=== PATIENT | female | born 1925 | race Caucasian/White ===

== ENCOUNTER 2017-01-31 09:25 | Day surgery (SDC) | payer MEDICARE, BC ==
[~2017-01-31 09:25] MED LIST: Dexamethasone 4 MG/ML SDV ONE; Midazolam 1 MG/ML 2 ML SDV ONE
[2017-01-31] MEDS ORDERED: Sodium Chloride 0.9% 10 ML Syringe FLUSH PRN (09:30)
[2017-01-31] MEDS ORDERED: Cataract Ophth Solution EYELF ONE (09:30)
[2017-01-31] MEDS ORDERED: Proparacaine 0.5% Ophth Soln 15 ML Bottle EYELF ONE (09:30)
[2017-01-31] MEDS ORDERED: Acetaminophen/Codeine 300-30 MG Tab PO PRN (09:30)
[2017-01-31] MEDS ORDERED: Phenylephrine 10% Ophth Soln 5 ML Bot EYELF PRN (09:30)
[2017-01-31] MEDS ORDERED: Povidone-Iodine 5% Sterile Ophth Soln 30 ML Bottle EYELF ONE ×2 (09:30→10:33)
[2017-01-31] MEDS ORDERED: Phenylephrine 10% Ophth Soln 5 ML Bot EYELF ONE (09:30)
[2017-01-31] MEDS ORDERED: Timolol Maleate 0.5% Ophth Soln 5 ML Bottle EYELF ONE (09:30)
[2017-01-31] MEDS ORDERED: Moxifloxacin 0.5% Ophth Soln 3 ML Bottle EYELF ONE (09:30)
[2017-01-31] MEDS ORDERED: Acetaminophen 325 MG Tab PO PRN (09:30)
[2017-01-31] MEDS ORDERED: Ondansetron 4 MG/2 ML SDV IVPUSH PRN (09:30)
[2017-01-31] MEDS ORDERED: Apraclonidine 0.5% Ophth Soln 5 ML Bot EYELF ONE (10:33)
[2017-01-31] MEDS ORDERED: Diclofenac Sodium 0.1% Ophth Soln 5 ML Bottle EYELF ONE (10:33)
[2017-01-31] MEDS ORDERED: Dexamethasone/Neomycin/Polymyxin B Ophth Oint 3.5 GM Tube EYELF ONE (10:33)
[2017-01-31] MEDS ORDERED: Lidocaine 1% 30 ML SDV ONE (10:34)
[2017-01-31] MEDS ORDERED: Balanced Salt Solution Ophth Irrig 500 ML Bottle IOCULAR ONE (10:34)
[2017-01-31] MEDS ORDERED: Chondroitin Sulfate/Hyaluronate Sodium Ophth Inj 0.5 ML Syringe IOCULAR ONE (10:34)
[2017-01-31] MEDS ORDERED: Chondroitin Sulfate/Hyaluronate Sodium Ophth Inj 0.75 ML Syringe EYELF ONE (10:34)
[2017-01-31] MEDS ORDERED: Acetylcholine 20 MG/2 ML Intraocular Inj Kit EYELF ONE (10:34)
[2017-01-31] MEDS ORDERED: Vancomycin 500 MG SDV EYELF ONE (10:35)
[2017-01-31 11:36] VITALS: BP 123/61
[2017-01-31] MEDS ORDERED: Dexamethasone 4 MG/ML SDV IV ONE (14:26)
[2017-01-31] MEDS ORDERED: Midazolam 1 MG/ML 2 ML SDV IV ONE (14:26)
--- NOTE | 2017-01-31 14:38 | OR ---
DATE: 01/31/2017 PREOPERATIVE DIAGNOSES: 1. Visually significant cataract, left eye. 2. Primary open angle glaucoma, left eye. POSTOPERATIVE DIAGNOSES: 1. Visually significant cataract, left eye. 2. Primary open angle glaucoma, left eye. PROCEDURES: 1. Extracapsular cataract extraction with intraocular lens implant. 2. Placement of iStent for glaucoma control. SURGEON: Aneudy Rosado MD ANESTHESIA: Local MAC. INDICATION: Ms. Gupta was seen in the clinic with complaints of blurred vision. Clinical examination revealed visually significant cataract, pseudoexfoliation, and mild primary open angle glaucoma. I explained options. I offered cataract surgery and I explained risks including but not limited to, infection, retinal detachment, loss of vision, need for additional surgery, and risks associated with anesthesia. I also explained risks associated with pseudoexfoliation including the potential for lens dislocation. We discussed implant options. She requested a monofocal implant. I offered surgery with or without the iStent, she requested the iStent procedure. OPERATIVE DESCRIPTION: The patient was prepped and draped in a sterile fashion and topical anesthesia was applied. Attention was placed on the operative eye. A sterile lid speculum was placed to allow operative exposure. Paracentesis was made temporal. Intracameral lidocaine was administered. Viscoelastic was injected. A full-thickness corneal incision was made using the trapezoidal blade. Bent needle cystotome was then used to make a small katherine in the anterior capsule and a 360-degree curvilinear capsulorrhexis was created. Nucleus was then hydrodissected and hydrodelinated using balanced saline solution. Nucleus was then decompressed centrally and rotated and noted to be free of adhesions. Nucleus was then removed using the phacoemulsification handpiece. Additional viscoelastic was then injected into the capsular bag and the intraocular lens was inserted into the capsular bag. The iStent portion of the procedure was then performed. Following removal of the nucleus and cortex, the irrigation and aspiration handpiece was inserted to remove viscoelastic from the posterior surface of the IOL. Additional viscoelastic was then inserted into the anterior chamber angle directly opposite the corneal incision. Miochol was injected into the nasal iris to promote pupillary contraction. The patient's head was then rotated 35 degrees away from the initial position. The operating microscope was also rotated 35 degrees to achieve the proper orientation. The gonioprism was then placed onto the eye. The iStent was then inserted into the anterior chamber with the right hand and the stent was introduced into the pigmented trabecular meshwork. The stent was advanced beneath the trabecular meshwork until approximately two-thirds of the body was covered and then the stent was released from the insertion device. The stent was then tapped into its final resting position using the insertion device. The device was then reinspected to ensure that it was securely in position. The viscoelastic was aspirated from the anterior chamber. Wound and paracentesis sites were hydrated using balanced saline solution. Vancomycin 0.1 mL was injected into the anterior chamber. Intraocular lens was inspected and noted to be clear and well centered. Postoperative drops were placed and a sterile eye patch and shield were placed over the operative eye. The patient was then transported to the postoperative recovery area having tolerated the procedure well. No complications occurred. CC: Aneudy Rosado MD [facility] /[id number]
== END 2017-01-31 11:39 | disposition home or self-care (01) ==
LOC: DL.SDS 09:25
PROVIDERS: ATTEND Ophthalmology
PROC: 08RK3JZ Replacement of Left Lens with Synthetic Substitute, Percutaneous Approach (ICD-10-PCS; principal; 2017-01-31)
PROC: 087Y7DZ Dilation of Left Lacrimal Duct with Intraluminal Device, Via Natural or Artificial Opening (ICD-10-PCS; 2017-01-31)
DX: H26.9 Unspecified cataract (principal); H40.1120 Primary open-angle glaucoma, left eye, stage unspecified; E78.5 Hyperlipidemia, unspecified; E03.9 Hypothyroidism, unspecified; E66.9 Obesity, unspecified; M81.0 Age-related osteoporosis without current pathological fracture; R73.03 Prediabetes; I34.0 Nonrheumatic mitral (valve) insufficiency; I07.1 Rheumatic tricuspid insufficiency; Z79.899 Other long term (current) drug therapy
CPT/HCPCS: 00142; 66183; 66984; A9270; C1780; C1783; J1100; J2250; J3370; J7050

== ENCOUNTER 2017-02-07 08:01 | Day surgery (SDC) | payer MEDICARE, BC ==
[2017-02-07] MEDS ORDERED: Acetaminophen/Codeine 300-30 MG Tab PO PRN (08:30)
[2017-02-07] MEDS ORDERED: Acetaminophen 325 MG Tab PO PRN (08:30)
[2017-02-07] MEDS ORDERED: Timolol Maleate 0.5% Ophth Soln 5 ML Bottle EYERT ONE (08:30)
[2017-02-07] MEDS ORDERED: Ondansetron 4 MG/2 ML SDV IVPUSH PRN (08:30)
[2017-02-07] MEDS ORDERED: Cataract Ophth Solution EYERT ONE (08:30)
[2017-02-07] MEDS ORDERED: Povidone-Iodine 5% Sterile Ophth Soln 30 ML Bottle EYERT ONE ×2 (08:30→09:41)
[2017-02-07] MEDS ORDERED: Sodium Chloride 0.9% 10 ML Syringe FLUSH PRN (08:30)
[2017-02-07] MEDS ORDERED: Phenylephrine 10% Ophth Soln 5 ML Bot EYERT PRN (08:30)
[2017-02-07] MEDS ORDERED: Moxifloxacin 0.5% Ophth Soln 3 ML Bottle EYERT ONE (08:30)
[2017-02-07] MEDS ORDERED: Proparacaine 0.5% Ophth Soln 15 ML Bottle EYERT ONE (08:30)
[2017-02-07] MEDS ORDERED: Phenylephrine 10% Ophth Soln 5 ML Bot EYERT ONE (08:30)
[2017-02-07] MEDS ORDERED: Diclofenac Sodium 0.1% Ophth Soln 5 ML Bottle EYERT ONE (09:40)
[2017-02-07] MEDS ORDERED: Lidocaine 1% 30 ML SDV ONE (09:40)
[2017-02-07] MEDS ORDERED: Dexamethasone/Neomycin/Polymyxin B Ophth Oint 3.5 GM Tube EYERT ONE (09:41)
[2017-02-07] MEDS ORDERED: Apraclonidine 0.5% Ophth Soln 5 ML Bot EYERT ONE (09:41)
[2017-02-07] MEDS ORDERED: Chondroitin Sulfate/Hyaluronate Sodium Ophth Inj 0.75 ML Syringe EYERT ONE (09:42)
[2017-02-07] MEDS ORDERED: Balanced Salt Solution Ophth Irrig 500 ML Bottle IOCULAR ONE (09:42)
[2017-02-07] MEDS ORDERED: Vancomycin 500 MG SDV EYERT ONE (09:42)
[2017-02-07] MEDS ORDERED: Chondroitin Sulfate/Hyaluronate Sodium Ophth Inj 0.5 ML Syringe IOCULAR ONE (09:43)
[2017-02-07] MEDS ORDERED: Acetylcholine 20 MG/2 ML Intraocular Inj Kit EYERT ONE (09:43)
[2017-02-07] MEDS ORDERED: Tetracaine HCl/PF 0.5% 4 ML Bottle EYERT ONE (09:44)
--- NOTE | 2017-02-07 10:38 | OR ---
DATE: 02/07/2017 PREOPERATIVE DIAGNOSES: 1. Visually significant cataract, right eye. 2. Primary open angle glaucoma, right eye. POSTOPERATIVE DIAGNOSES: 1. Visually significant cataract, right eye. 2. Primary open angle glaucoma, right eye. PROCEDURES: 1. Extracapsular cataract extraction with intraocular lens implant. 2. Placement of iStent for glaucoma control. SURGEON: Aneudy Rosado MD ANESTHESIA: Local MAC. INDICATION: Mrs. Gupta was seen in the clinic. She complaints of difficulty reading small print, difficulty with distance vision and her vision changing over the last 1 year. Her clinical examination reveals visually significant mixed cataract, pseudoexfoliation, and mild primary open angle glaucoma. I explained options. I offered cataract surgery and I explained risks preoperatively including but not limited to, infection, retinal detachment, loss of vision, need for additional surgery, and risks associated with anesthesia. We discussed implant options. She requested a monofocal implant. I offered surgery with or without the Istent. She requested the Istent procedure. OPERATIVE DESCRIPTION: The patient was prepped and draped in a sterile fashion and topical anesthesia was applied. Attention was placed on the operative eye. A sterile lid speculum was placed to allow operative exposure. Paracentesis was made temporal. Intracameral lidocaine was administered. Viscoelastic was injected. A full-thickness corneal incision was made using the trapezoidal blade. Bent needle cystotome was then used to make a small katherine in the anterior capsule and a 360-degree curvilinear capsulorrhexis was created. Nucleus was then hydrodissected and hydrodelinated using balanced saline solution. Nucleus was then decompressed centrally and rotated and noted to be free of adhesions. Nucleus was then removed using the phacoemulsification handpiece. Additional viscoelastic was then injected into the capsular bag and the intraocular lens was inserted into the capsular bag. The iStent portion of the procedure was then performed. Following removal of the nucleus and cortex, the irrigation and aspiration handpiece was inserted to remove viscoelastic from the posterior surface of the IOL. Additional viscoelastic was then inserted into the anterior chamber angle directly opposite the corneal incision. Miochol was injected into the nasal iris to promote pupillary contraction. The patient's head was then rotated 35 degrees away from the initial position. The operating microscope was also rotated 35 degrees to achieve the proper orientation. The gonioprism was then placed onto the eye. The iStent was then inserted into the anterior chamber with the right hand and the stent was introduced into the pigmented trabecular meshwork. The stent was advanced beneath the trabecular meshwork until approximately two-thirds of the body was covered and then the stent was released from the insertion device. The stent was then tapped into its final resting position using the insertion device. The device was then reinspected to ensure that it was securely in position. The viscoelastic was aspirated from the anterior chamber. Wound and paracentesis sites were hydrated using balanced saline solution. Vancomycin 0.1 mL was injected into the anterior chamber. Intraocular lens was inspected and noted to be clear and well centered. Postoperative drops were placed and a sterile eye patch and shield were placed over the operative eye. The patient was then transported to the postoperative recovery area having tolerated the procedure well. No complications occurred. CC: Aneudy Rosado MD [facility] /[id number]
[2017-02-07 11:01] VITALS: BP 128/68
[2017-02-07] MEDS ORDERED: Midazolam 1 MG/ML 2 ML SDV IV ONE (13:16)
[2017-02-07] MEDS ORDERED: Dexamethasone 4 MG/ML SDV IV ONE (13:16)
== END 2017-02-07 11:00 | disposition home or self-care (01) ==
LOC: DL.SDS 08:01
PROVIDERS: ATTEND Ophthalmology
DX: H40.1111 Primary open-angle glaucoma, right eye, mild stage (principal); H26.9 Unspecified cataract; H53.8 Other visual disturbances; I10 Essential (primary) hypertension; E78.5 Hyperlipidemia, unspecified; E03.9 Hypothyroidism, unspecified; E66.9 Obesity, unspecified; Z98.890 Other specified postprocedural states
CPT/HCPCS: 00142; 0191T; 66984; A9270; C1780; C1783; J1100; J2250; J3370; J7050

== ENCOUNTER 2017-03-11 15:40 | Emergency (ER) | payer MEDICARE, BC ==
[2017-03-11 15:50] VITALS: BP 146/64
--- NOTE | 2017-03-11 16:23 | EDM.PDOC ---
ED HPI GENERAL MEDICAL PROBLEM - General Chief Complaint: Upper Extremity Injury/Pain Stated Complaint: POSIBLE HAND FRACTURE Time Seen by Provider: 03/11/17 16:18 Source of Information: Reports: Patient History Limitations: Reports: No Limitations - History of Present Illness INITIAL COMMENTS - FREE TEXT/NARRATIVE: 89 yo white female who was doing house work and became dizzy and c/o falling backward and developing left wrist pain and swelling @ 2:30PM today at home. No LOC Onset: Today Onset Date: 03/11/17 Onset Time: 14:30 Duration: Hour(s): Location: Reports: Upper Extremity, Left Quality: Reports: Ache Severity: Moderate Improves with: Reports: Rest Worsens with: Reports: Movement Context: Reports: Trauma (fall ) Associated Symptoms: Reports: No Other Symptoms Left Wrist Pain Score (Numeric/FACES): 2 - Related Data Allergies Allergy/AdvReac Type Severity Reaction Status Date / Time No Known Allergies Allergy Verified 02/07/17 08:43 Home Meds: Home Meds Aspirin [Halfprin] 1 tab PO DAILY 01/29/17 [History] Calcium Citrate/Vitamin D3 [Calcium Citrate - Vit D Tablet] 1 tab PO BID [History] Chlorthalidone 0.5 tab PO DAILY 01/29/17 [History] Levothyroxine [Synthroid] 1 tab PO ACBREAKFAST 01/29/17 [History] Polyethylene Glycol 3350 [MiraLAX] 1 dose PO DAILY 01/29/17 [History] Quinapril HCl 1 tab PO DAILY 01/29/17 [History] Rosuvastatin Calcium 0.5 tab PO DAILY 01/29/17 [History] Brimonidine Tartrate [Brimonidine Tartrate 0.2% Ophth Soln] 1 drop EYEBOTH BID 03/11/17 [History] Past Medical History HEENT History: Reports: Cataract Cardiovascular History: Reports: High Cholesterol, Hypertension, Other (See Below) Other Cardiovascular History: MITRAL REGURGITATION. 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 HX OF WRIST FRACTURE. HX OF SCOLIOSIS Neurological History: Reports: Migraines Psychiatric History: Reports: None Endocrine/Metabolic History: Reports: Hypothyroidism, Obesity/BMI 30+, Osteoporosis Hematologic History: Reports: None Immunologic History: Reports: None Oncologic (Cancer) History: Reports: Breast, Other (See Below) Other Oncologic History: HX OF DUCTAL CARCINOMA IN SITU (DCIS) OF LEFT BREAST. BREAST LUMPECTOMY. BREAST SENTINAL NODE BIOPSY Dermatologic History: Reports: None - Infectious Disease History Infectious Disease History: Reports: Chicken Pox, Measles, Mumps - Past Surgical History Head Surgeries/Procedures: Reports: None HEENT Surgical History: Reports: None, Cataract Surgery Cardiovascular Surgical History: Reports: None GI Surgical History: Reports: Colonoscopy, Hernia, Abdominal, Other (See Below) Other GI Surgeries/Procedures: HX OF VENTRAL HERNIA REPAIR Female Surgical History: Reports: Breast Biopsy, Other (See Below) Other Female Surgeries/Procedures: BREAST LUMPECTOMY. BREAST SENTINAL NODE BIOPSY Musculoskeletal Surgical History: Reports: Other (See Below) Other Musculoskeletal Surgeries/Procedures:: REPAIR OF PATELLA FRACTURE. WRIST SCAPHOID REPAIR Social & Family History - Family History Cardiac: Reports: Other (See Below) Other Cardiac Family History: HEART DISEASE - BROTHER X2, FATHER Neurological: Psychiatric: Reports: Developmental Delay, Other (See Below) Other Psychiatric Family History: MENTAL RETARDATION - DAUGHTER Oncologic: Reports: Breast Other Oncologic Family History: BREAST CA - DAUGHTER, MATERNAL AUNT, SISTER X2, MOTHER & ANOTHER FAMILY MEMBER. CA UNKNOWN - DAUGHTER, BROTHER, SISTER. COLON CA - MATERNAL AUNT, MOTHER - Tobacco Use Smoking Status *Q: Never Smoker Second Hand Smoke Exposure: No - Caffeine Use Caffeine Use: Reports: None - Recreational Drug Use Recreational Drug Use: No Review of Systems - Review of Systems Review Of Systems: See Below Constitutional: Reports: No Symptoms Eyes: Reports: No Symptoms Ears: Reports: No Symptoms Nose: Reports: No Symptoms Mouth/Throat: Reports: No Symptoms Respiratory: Reports: No Symptoms Cardiovascular: Reports: No Symptoms GI/Abdominal: Reports: No Symptoms Genitourinary: Reports: No Symptoms Musculoskeletal: Reports: Joint Pain (left wrist swelling ) Skin: Reports: Bruising, Erythema Neurological: Reports: No Symptoms Psychiatric: Reports: No Symptoms ED EXAM, GENERAL - Physical Exam Exam: See Below Exam Limited By: No Limitations General Appearance: Alert, WD/WN, No Apparent Distress Ears: Normal External Exam Nose: Normal Inspection Throat/Mouth: Normal Inspection Head: Atraumatic Neck: Normal Inspection Respiratory/Chest: No Respiratory Distress Cardiovascular: Normal Peripheral Pulses, Regular Rate, Rhythm Peripheral Pulses: 2+: Radial (L) GI/Abdominal: Normal Bowel Sounds, Soft Back Exam: Normal Inspection, Full Range of Motion Extremities: Joint Swelling (left wrist), Limited Range of Motion Neurological: Alert, Oriented, CN II-XII Intact, Normal Cognition Psychiatric: Normal Affect Skin Exam: Erythema Lymphatic: No Adenopathy ED TRAUMA EXTREMITY PROCEDURES - Splinting Left Upper Extremity Splint Site: Left Wrist Pre-Procedure NV Status: Normal Post-Procedure NV Status: Normal Splint Material: Aluminum-Foam Splint Design: Volar, Sling Applied & Form Fitted By: [place] Provider Post-Splint Application NV Check: NV Status Normal, Good Position Complications: No Course - Vital Signs Last Recorded V/S: Last Vital Signs Temp 37.4 C 03/11/17 15:48 Pulse 79 03/11/17 15:48 Resp 18 03/11/17 15:48 BP 146/64 H 03/11/17 15:48 Pulse Ox 100 03/11/17 15:48 - Orders/Labs/Meds Orders: Active Orders 24 hr Category Date Time Status EKG 12 Lead [EKG Documentation Completion] [RC] STAT Care 03/11/17 16:35 Ordered - Re-Assessments/Exams Free Text/Narrative Re-Assessment/Exam: 03/11/17 16:55 Case and X-rays discussed with Dr. Sher( Orthopedic Surgery) @ [facility] - Advised to splint and F/U next week . Call Office @ [phone] For Pain continue with Acetaminophen Departure - Departure Time of Disposition: 17:00 Disposition: Home, Self-Care 01 Condition: Good Clinical Impression: Fracture of radius and ulna Qualifiers: Encounter type: initial encounter Fracture type: closed Laterality: left Qualified Code(s): S52.202A - Unspecified fracture of shaft of left ulna, initial encounter for closed fracture; S52.92XA - Unspecified fracture of left forearm, initial encounter for closed fracture - Discharge Information Instructions: Cast or Splint Care, Imad-ag-Colc, How to Use a Sling, Easy-to- Read, Wrist Fracture Treated With Immobilization, Swug-dp-[id number] Forms: ED Department Discharge Additional Instructions: Keep Sling and Splint on until seen by Orthopedics Call Dr. Sher (Orthopedic) on Sunday for F/U appt. @ [phone] - My Orders Last 24 Hours: My Active Orders 03/11/17 16:35 EKG 12 Lead [EKG Documentation Completion] [RC] STAT - Assessment/Plan Last 24 Hours: My Active Orders 03/11/17 16:35 EKG 12 Lead [EKG Documentation Completion] [RC] STAT
--- NOTE | 2017-03-14 09:34 | EKG ---
03/11/2017- SANDRINE KEN - EKG per my reading shows sinus rhythm at a rate of 73 with PAC. [facility] /[id number]
== END 2017-03-11 17:15 | disposition home or self-care (01) ==
LOC: DL.ED 15:40
DX: S52.572A Other intraarticular fracture of lower end of left radius, initial encounter for closed fracture (principal); S52.202A Unspecified fracture of shaft of left ulna, initial encounter for closed fracture; I10 Essential (primary) hypertension; E78.00 Pure hypercholesterolemia, unspecified; M81.0 Age-related osteoporosis without current pathological fracture; M19.90 Unspecified osteoarthritis, unspecified site; E03.9 Hypothyroidism, unspecified; E66.9 Obesity, unspecified; Z68.30 Body mass index [BMI] 30.0-30.9, adult; Z85.3 Personal history of malignant neoplasm of breast; Z98.49 Cataract extraction status, unspecified eye; Z98.890 Other specified postprocedural states; Z79.82 Long term (current) use of aspirin; Z79.899 Other long term (current) drug therapy; W19.XXXA Unspecified fall, initial encounter; Y92.009 Unspecified place in unspecified non-institutional (private) residence as the place of occurrence of the external cause
CPT/HCPCS: 73100-LT; 93005; 93010; 99282; 99284

== ENCOUNTER 2017-06-12 07:17 | Day surgery (SDC) | payer MEDICARE, BC ==
[~2017-06-12 07:17] MED LIST changes: -Dexamethasone 4 MG/ML SDV ONE; +Dextrose 5%-0.45% NaCl 1,000 ML IV SCH; +Sodium Chloride 0.9% 10 ML Syringe FLUSH PRN; +fentaNYL 100 MCG/2 ML SDV ONE
[2017-06-12] MEDS ORDERED: Midazolam 1 MG/ML 2 ML SDV IV ONE ×2 (07:18→08:36)
[2017-06-12] MEDS ORDERED: fentaNYL 100 MCG/2 ML SDV IV ONE ×2 (07:18→08:36)
--- NOTE | 2017-06-12 12:26 | OR ---
DATE: 06/12/2017 PROCEDURE: Esophagogastroduodenoscopy and multiple pinch biopsies. INSTRUMENT USED: GIF-H180 Olympus video panendoscope. PREMEDICATIONS: No oral topical anesthesia used. Fentanyl 50 mcg intravenous, Versed 0.5 mg intravenous. Nasal 2 L O2 cannula. The procedure was done under pulse oximetry, BP recording, and telemetry monitor. INDICATION: The patient with intractable ascites and portal hypertension. Esophagogastroduodenoscopy is performed for detection of any varices, H.pylori status to be determined, endoscopic hemostasis therapy if needed. DESCRIPTION OF PROCEDURE: The scope was passed with ease. Adequate visualization of the esophagus was made from proximal to distal areas. No upper esophageal lesions identified. No distal esophageal stricture. Small uphill esophageal varices were noted. Photographs were taken. No esophageal polyp or tumor mass identified. Z-line was seen at around 40 cm distal to the oral verge, configuration consistent with grade 1 by ZAP classification. No proximal gastric varices noted. Gastric fundus examination by retroflexion showed no polypoid lesions, no gastric ulcer, malignant mass, or vascular ectasia identified. Duodenal bulb showed no ulcer. Visualized second part of the duodenum was unremarkable. Multiple pinch biopsies were taken from the gastric antrum and proximal body and sent for PyloriTek test for H. pylori, and if negative in an hour, tissues to be sent for histopathology. No bleeding was noted from any of the visualized areas at the completion of examination. Photographs were taken of the duodenal bulb, gastric antrum, fundus, and distal esophagus. IMPRESSION: Small uphill esophageal varices. The patient tolerated the procedure well. [facility] /[id number]
[2017-06-12 12:50] VITALS: BP 94/56
== END 2017-06-12 10:40 | disposition home or self-care (01) ==
LOC: DL.ENDO 07:17
PROVIDERS: ATTEND Internal Medicine Gastroenterology
DX: I85.00 Esophageal varices without bleeding (principal); B96.81 Helicobacter pylori [H. pylori] as the cause of diseases classified elsewhere; R18.8 Other ascites; K76.6 Portal hypertension; E78.5 Hyperlipidemia, unspecified; I10 Essential (primary) hypertension; Z85.3 Personal history of malignant neoplasm of breast; Z98.890 Other specified postprocedural states
CPT/HCPCS: 43239; J2250; J3010; J7042

== ENCOUNTER 2017-07-09 16:38 | Emergency (ER) | payer MEDICARE, BC ==
--- NOTE | 2017-07-09 18:00 | EDM.PDOC ---
ED HPI GENERAL MEDICAL PROBLEM - General Chief Complaint: Respiratory Problem Stated Complaint: SOB. IN BY AMB Time Seen by Provider: 07/09/17 17:10 Source of Information: Reports: Patient, Family, RN, RN Notes Reviewed History Limitations: Reports: No Limitations - History of Present Illness INITIAL COMMENTS - FREE TEXT/NARRATIVE: Pt presents to the ER with c/o increased sob over the past few days. She states she has cervical cancer and "possibly" liver cancer. Family states she has paracentesis every few weeks, and she feels it has been too long since the last one. She denies fever or chills, chest pain, N/V/D. Onset: Today, Gradual Location: Reports: Chest, Abdomen Quality: Reports: Pressure Severity: Moderate Improves with: Reports: None Worsens with: Reports: None Associated Symptoms: Reports: No Other Symptoms - Related Data Allergies Allergy/AdvReac Type Severity Reaction Status Date / Time No Known Allergies Allergy Verified 06/12/17 07:45 Home Meds: Home Meds Aspirin [Halfprin] 1 tab PO DAILY 01/29/17 [History] Calcium Citrate/Vitamin D3 [Calcium Citrate - Vit D Tablet] 1 tab PO BID [History] Levothyroxine [Synthroid] 1 tab PO ACBREAKFAST 01/29/17 [History] Polyethylene Glycol 3350 [MiraLAX] 1 dose PO DAILY 01/29/17 [History] Acetaminophen 1 tab PO ASDIRECTED PRN 06/11/17 [History] Furosemide [Furosemide] 1 tab PO DAILY 06/11/17 [History] Spironolactone [Aldactone] 1 tab PO DAILY 06/11/17 [History] Wheat Dextrin [Benefiber] 2 tsp PO DAILY 06/11/17 [History] Quinapril HCl 1 tab PO DAILY 07/09/17 [History] Past Medical History HEENT History: Reports: Glaucoma Cardiovascular History: Reports: Afib, High Cholesterol, Hypertension, SOB on Exertion, Other (See Below) Other Cardiovascular History: MITRAL REGURGITATION. 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 HX OF WRIST FRACTURE. HX OF SCOLIOSIS Neurological History: Reports: Migraines Psychiatric History: Reports: None Endocrine/Metabolic History: Reports: Hypothyroidism, Obesity/BMI 30+, Osteopenia, Osteoporosis Hematologic History: Reports: Anemia, Iron Deficiency Immunologic History: Reports: None Oncologic (Cancer) History: Reports: Breast, Lung, Other (See Below) Other Oncologic History: HX OF DUCTAL CARCINOMA IN SITU (DCIS) OF LEFT BREAST. BREAST LUMPECTOMY. BREAST SENTINAL NODE BIOPSY Dermatologic History: Reports: Other (See Below) Other Dermatologic History: HX OF HERPES ZOSTER VACCINATION - Infectious Disease History Infectious Disease History: Reports: Chicken Pox, Measles, Mumps - Past Surgical History Head Surgeries/Procedures: Reports: None HEENT Surgical History: Reports: Cataract Surgery Cardiovascular Surgical History: Reports: Carotid Endarterectomy Respiratory Surgical History: Reports: None GI Surgical History: Reports: Appendectomy, Colonoscopy, Hernia, Abdominal, Other (See Below) Other GI Surgeries/Procedures: HX OF VENTRAL HERNIA REPAIR Female Surgical History: Reports: Breast Biopsy, Hysterectomy, Other (See Below) Other Female Surgeries/Procedures: BREAST LUMPECTOMY. BREAST SENTINAL NODE BIOPSY Neurological Surgical History: Reports: None Musculoskeletal Surgical History: Reports: Other (See Below) Other Musculoskeletal Surgeries/Procedures:: REPAIR OF PATELLA FRACTURE. WRIST SCAPHOID REPAIR Dermatological Surgical History: Reports: None Social & Family History - Family History Cardiac: Reports: Other (See Below) Other Cardiac Family History: HEART DISEASE - BROTHER X2, FATHER Neurological: Psychiatric: Reports: Developmental Delay, Other (See Below) Other Psychiatric Family History: MENTAL RETARDATION - DAUGHTER Oncologic: Reports: Breast Other Oncologic Family History: BREAST CA - DAUGHTER, MATERNAL AUNT, SISTER X2, MOTHER & ANOTHER FAMILY MEMBER. CA UNKNOWN - DAUGHTER, BROTHER, SISTER. COLON CA - MATERNAL AUNT, MOTHER - Tobacco Use Smoking Status *Q: Former Smoker Used Tobacco, but Quit: Yes Month Tobacco Last Used: 0 Second Hand Smoke Exposure: Yes - Caffeine Use Caffeine Use: Reports: None - Recreational Drug Use Recreational Drug Use: No ED ROS GENERAL - Review of Systems Review Of Systems: ROS reveals no pertinent complaints other than HPI. ED EXAM, GENERAL - Physical Exam Exam: See Below Exam Limited By: No Limitations General Appearance: Alert, WD/WN, No Apparent Distress Eye Exam: Bilateral Eye: EOMI, Normal Inspection Ears: Normal External Exam, Hearing Grossly Normal Nose: Normal Inspection Throat/Mouth: Normal Inspection, Normal Voice, No Airway Compromise Head: Atraumatic, Normocephalic Neck: Normal Inspection, Supple, Non-Tender, Full Range of Motion Respiratory/Chest: No Respiratory Distress, Lungs Clear, Normal Breath Sounds, No Accessory Muscle Use, Chest Non-Tender Cardiovascular: Normal Peripheral Pulses, Regular Rate, Rhythm, No Edema, No Gallop, No JVD, No Murmur, No Rub Peripheral Pulses: 1+: Radial (L), Radial (R) GI/Abdominal: Normal Bowel Sounds, Distended, Hernia (large, umbilical), Other ( ascites) (Female) Exam: Deferred Rectal (Female) Exam: Deferred Back Exam: Normal Inspection, Decreased Range of Motion Extremities: Normal Inspection, Normal Range of Motion, Non-Tender, No Pedal Edema, Normal Capillary Refill Neurological: Alert, Oriented, Slow to Respond Psychiatric: Normal Affect, Normal Mood Skin Exam: Warm, Dry, Intact, Normal Color, No Rash Lymphatic: No Adenopathy EKG INTERPRETATION EKG Date: 07/09/17 Time: 17:10 Rhythm: Other (sinus tachycardia) Rate (Beats/Min): 111 Comparison: Change From Previous EKG EKG Interpretation Comments: Incomplete RBBB Course - Vital Signs Last Recorded V/S: Last Vital Signs Temp 98.3 F 07/09/17 17:51 Pulse 108 H 07/09/17 17:51 Resp 28 H 07/09/17 17:51 BP 85/57 L 07/09/17 17:51 Pulse Ox 100 07/09/17 17:51 - Orders/Labs/Meds Orders: Active Orders 24 hr Category Date Time Status EKG Documentation Completion [RC] STAT Care 07/09/17 17:15 Active Labs: Laboratory Tests 07/09/17 07/09/17 Range/Units 17:30 17:30 WBC 14.9 H (5.0-10.0) 10^3/uL RBC 4.16 L (4.2-5.4) 10^6/uL Hgb 12.3 (12.0-16.0) g/dL Hct 38.5 (37.0-47.0) % MCV 92.5 (80-100) fL MCH 29.6 (27.0-34.0) pg MCHC 31.9 L (33.0-35.0) g/dL Plt Count 342 (150-450) 10^3/uL Neut % (Auto) 87.2 H (42.2-75.2) % Lymph % (Auto) 2.6 L (20.5-50.1) % [place] % (Auto) 8.9 H (2-8) % Eos % (Auto) 1.1 (1.0-3.0) % Baso % (Auto) 0.2 (0.0-1.0) % Sodium 135 (135-145) mmol/L Potassium 4.8 (3.6-5.0) mmol/L Chloride 95 L (101-111) mmol/L Carbon Dioxide 27.0 (21.0-31.0) mmol/L Anion Gap 17.8 BUN 40 H (7-18) mg/dL Creatinine 1.7 H (0.6-1.3) mg/dL Est Cr Clr Drug Dosing 17.74 mL/min Estimated GFR (MDRD) 28 BUN/Creatinine Ratio 23.52 Glucose 118 H (74-105) mg/dL Calcium 8.9 (8.4-10.2) mg/dl Total Bilirubin 0.6 (0.2-1.0) mg/dL AST 27 (10-42) IU/L ALT 11 (10-60) IU/L Alkaline Phosphatase 62 (42-121) IU/L Total Protein 6.7 (6.7-8.2) g/dl Albumin 2.9 L (3.2-5.5) g/dl Globulin 3.8 Albumin/Globulin Ratio 0.76 Departure - Departure Time of Disposition: 19:18 Disposition: DC/Tfer to [facility] 02 Condition: Fair Clinical Impression: Pleural effusion, Cancer Elevated WBC count Qualifiers: Leukocytosis type: unspecified Qualified Code(s): D72.829 - Elevated white blood cell count, unspecified Ascites Qualifiers: Ascites type: malignant Qualified Code(s): R18.0 - Malignant ascites - Discharge Information Forms: ED Department Discharge, Interfacility Transfer EMTALA - My Orders Last 24 Hours: My Active Orders 07/09/17 17:15 EKG Documentation Completion [RC] STAT - Assessment/Plan Last 24 Hours: My Active Orders 07/09/17 17:15 EKG Documentation Completion [RC] STAT
[2017-07-09] MEDS ORDERED: cefTRIAXone 1 GM in Sodium Chloride 0.9% 50 ML IV ONE (19:24)
[2017-07-09 19:30] VITALS: BP 85/56
--- NOTE | 2017-07-12 15:12 | EKG ---
07/09/2017 - SANDRINE KEN - This 12-lead EKG shows a sinus tachycardia with a ventricular rate of 111. Poor R-wave progression. Incomplete right bundle-branch block. [facility] /[id number]
== END 2017-07-09 20:14 ==
LOC: DL.ED 16:38
DX: R18.0 Malignant ascites (principal); J90 Pleural effusion, not elsewhere classified; D72.829 Elevated white blood cell count, unspecified; K42.9 Umbilical hernia without obstruction or gangrene; Z85.3 Personal history of malignant neoplasm of breast; Z85.118 Personal history of other malignant neoplasm of bronchus and lung; I10 Essential (primary) hypertension; E78.00 Pure hypercholesterolemia, unspecified; E03.9 Hypothyroidism, unspecified; Z87.891 Personal history of nicotine dependence; Z79.82 Long term (current) use of aspirin; Z79.899 Other long term (current) drug therapy
CPT/HCPCS: 36415; 71010; 80053; 85025; 93005; 93010; 96374; 99285; J0696; J7050

== ENCOUNTER 2017-07-29 04:25 | Emergency (ER) | payer MEDICARE, BC ==
--- NOTE | 2017-07-29 04:45 | EDM.PDOC ---
ED HPI GENERAL MEDICAL PROBLEM - General Chief Complaint: Respiratory Problem Stated Complaint: AMBULANCE Time Seen by Provider: 07/29/17 04:39 Source of Information: Reports: Patient, Family History Limitations: Reports: No Limitations - History of Present Illness INITIAL COMMENTS - FREE TEXT/NARRATIVE: daughter states pt has CA and CHF. was here last month and transf to GF and Dx with ascites that presses onto her lings causing SOB which is relieved by paracentesis by I.R. tonight pt c/o sob and not getting better so called EMS. EMS arrived and Pt's O2 sat 68% @ [facility]. - Related Data Allergies Allergy/AdvReac Type Severity Reaction Status Date / Time No Known Allergies Allergy Verified 06/12/17 07:45 Home Meds: Home Meds Aspirin [Halfprin] 1 tab PO DAILY 01/29/17 [History] Calcium Citrate/Vitamin D3 [Calcium Citrate - Vit D Tablet] 1 tab PO BID [History] Levothyroxine [Synthroid] 1 tab PO ACBREAKFAST 01/29/17 [History] Polyethylene Glycol 3350 [MiraLAX] 1 dose PO DAILY 01/29/17 [History] Acetaminophen 1 tab PO ASDIRECTED PRN 06/11/17 [History] Furosemide [Furosemide] 1 tab PO DAILY 06/11/17 [History] Spironolactone [Aldactone] 1 tab PO DAILY 06/11/17 [History] Wheat Dextrin [Benefiber] 2 tsp PO DAILY 06/11/17 [History] Quinapril HCl 1 tab PO DAILY 07/09/17 [History] Past Medical History HEENT History: Reports: Glaucoma Cardiovascular History: Reports: Afib, High Cholesterol, Hypertension, SOB on Exertion, Other (See Below) Other Cardiovascular History: MITRAL REGURGITATION. 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 HX OF WRIST FRACTURE. HX OF SCOLIOSIS Neurological History: Reports: Migraines Psychiatric History: Reports: None Endocrine/Metabolic History: Reports: Hypothyroidism, Obesity/BMI 30+, Osteopenia, Osteoporosis Hematologic History: Reports: Anemia, Iron Deficiency Immunologic History: Reports: None Oncologic (Cancer) History: Reports: Breast, Lung, Other (See Below) Other Oncologic History: HX OF DUCTAL CARCINOMA IN SITU (DCIS) OF LEFT BREAST. BREAST LUMPECTOMY. BREAST SENTINAL NODE BIOPSY Dermatologic History: Reports: Other (See Below) Other Dermatologic History: HX OF HERPES ZOSTER VACCINATION - Infectious Disease History Infectious Disease History: Reports: Chicken Pox, Measles, Mumps - Past Surgical History HEENT Surgical History: Reports: Cataract Surgery Cardiovascular Surgical History: Reports: Carotid Endarterectomy Respiratory Surgical History: Reports: None GI Surgical History: Reports: Appendectomy, Colonoscopy, Hernia, Abdominal, Other (See Below) Other GI Surgeries/Procedures: HX OF VENTRAL HERNIA REPAIR Female Surgical History: Reports: Breast Biopsy, Hysterectomy, Other (See Below) Other Female Surgeries/Procedures: BREAST LUMPECTOMY. BREAST SENTINAL NODE BIOPSY Neurological Surgical History: Reports: None Musculoskeletal Surgical History: Reports: Other (See Below) Other Musculoskeletal Surgeries/Procedures:: REPAIR OF PATELLA FRACTURE. WRIST SCAPHOID REPAIR Dermatological Surgical History: Reports: None Social & Family History - Family History Cardiac: Reports: Other (See Below) Other Cardiac Family History: HEART DISEASE - BROTHER X2, FATHER Neurological: Psychiatric: Reports: Developmental Delay, Other (See Below) Other Psychiatric Family History: MENTAL RETARDATION - DAUGHTER Oncologic: Reports: Breast Other Oncologic Family History: BREAST CA - DAUGHTER, MATERNAL AUNT, SISTER X2, MOTHER & ANOTHER FAMILY MEMBER. CA UNKNOWN - DAUGHTER, BROTHER, SISTER. COLON CA - MATERNAL AUNT, MOTHER - Tobacco Use Smoking Status *Q: Former Smoker Used Tobacco, but Quit: Yes Month Tobacco Last Used: 0 Second Hand Smoke Exposure: Yes - Caffeine Use Caffeine Use: Reports: None - Recreational Drug Use Recreational Drug Use: No ED ROS GENERAL - Review of Systems Review Of Systems: ROS reveals no pertinent complaints other than HPI. ED EXAM, GENERAL - Physical Exam Exam: See Below Exam Limited By: No Limitations General Appearance: Alert, WD/WN, Mild Distress, Other (distraught,) Ears: Hearing Grossly Normal Throat/Mouth: Normal Voice, No Airway Compromise Head: Atraumatic Neck: Non-Tender, Full Range of Motion Respiratory/Chest: Rales. No: No Accessory Muscle Use Cardiovascular: Regular Rate, Rhythm GI/Abdominal: Soft, Non-Tender, Distended, Other (ascites) Neurological: Alert, Oriented, Normal Cognition, No Motor/Sensory Deficits Psychiatric: Flat Affect Skin Exam: Warm, Dry, Normal Color Lymphatic: No Adenopathy Course - Vital Signs Last Recorded V/S: Last Vital Signs Temp 36.2 C 07/29/17 04:25 Pulse 107 H 07/29/17 05:32 Resp 32 H 07/29/17 05:32 BP 101/59 L 07/29/17 05:32 Pulse Ox 96 07/29/17 05:32 - Orders/Labs/Meds Orders: Active Orders 24 hr Category Date Time Status EKG 12 Lead [EKG Documentation Completion] [RC] STAT Care 07/29/17 04:26 Active Chest 1V Frontal [CR] Urgent Exams 07/29/17 04:27 Taken CULTURE BLOOD [BC] Stat Lab 07/29/17 04:40 Results Labs: Laboratory Tests 07/29/17 07/29/17 07/29/17 Range/Units 04:40 04:40 04:40 WBC 14.2 H (5.0-10.0) 10^3/uL RBC 4.56 (4.2-5.4) 10^6/uL Hgb 13.7 (12.0-16.0) g/dL Hct 42.8 (37.0-47.0) % MCV 93.9 (80-100) fL MCH 30.0 (27.0-34.0) pg MCHC 32.0 L (33.0-35.0) g/dL Plt Count 429 D (150-450) 10^3/uL Neut % (Auto) 84.2 H (42.2-75.2) % Lymph % (Auto) 4.5 L (20.5-50.1) % [place] % (Auto) 8.2 H (2-8) % Eos % (Auto) 2.8 (1.0-3.0) % Baso % (Auto) 0.3 (0.0-1.0) % Sodium 133 L (135-145) mmol/L Potassium 5.4 H (3.6-5.0) mmol/L Chloride 92 L (101-111) mmol/L Carbon Dioxide 30.0 (21.0-31.0) mmol/L Anion Gap 16.4 BUN 16 (7-18) mg/dL Creatinine 1.1 (0.6-1.3) mg/dL Est Cr Clr Drug Dosing 26.16 mL/min Estimated GFR (MDRD) 47 BUN/Creatinine Ratio 14.54 Glucose 157 H (74-105) mg/dL Lactic Acid 2.2 (0.5-2.2) mmol/L Calcium 9.1 (8.4-10.2) mg/dl Total Bilirubin 0.8 (0.2-1.0) mg/dL AST 39 (10-42) IU/L ALT 13 (10-60) IU/L Alkaline Phosphatase 71 (42-121) IU/L Troponin I 0.02 (0.00-0.02) ng/ml B-Natriuretic Peptide 140 H (0-100) pg/ml Total Protein 6.6 L (6.7-8.2) g/dl Albumin 3.1 L (3.2-5.5) g/dl Globulin 3.5 Albumin/Globulin Ratio 0.89 Meds: Medications Discontinued Medications Generic Name Dose Route Start Last Admin Trade Name Freq PRN Reason Stop Dose Admin Ceftriaxone Sodium 1 gm 07/29/17 05:31 07/29/17 05:42 Rocephin IVPUSH 07/29/17 05:32 1 gm ONETIME ONE Administration Furosemide 40 mg 07/29/17 05:31 07/29/17 05:39 Lasix IVPUSH 07/29/17 05:32 40 mg NOW ONE Administration - Re-Assessments/Exams Free Text/Narrative Re-Assessment/Exam: 07/29/17 05:[address] Jones @ who kindly accepted pt. Departure - Departure Time of Disposition: 05:52 Disposition: DC/Tfer to Acute Hospital 02 Condition: Fair Clinical Impression: Pleural effusion, Cancer Elevated WBC count Qualifiers: Leukocytosis type: unspecified Qualified Code(s): D72.829 - Elevated white blood cell count, unspecified Ascites Qualifiers: Ascites type: malignant Qualified Code(s): R18.0 - Malignant ascites - Discharge Information Forms: Interfacility Transfer EMTALA - My Orders Last 24 Hours: My Active Orders 07/29/17 04:26 EKG 12 Lead [EKG Documentation Completion] [RC] STAT 07/29/17 04:27 Chest 1V Frontal [CR] Urgent 07/29/17 04:40 CULTURE BLOOD [BC] Stat - Assessment/Plan Last 24 Hours: My Active Orders 07/29/17 04:26 EKG 12 Lead [EKG Documentation Completion] [RC] STAT 07/29/17 04:27 Chest 1V Frontal [CR] Urgent 07/29/17 04:40 CULTURE BLOOD [BC] Stat
[2017-07-29] MEDS ORDERED: Furosemide 40 MG/4 ML VIAL IVPUSH ONE (05:31)
[2017-07-29] MEDS ORDERED: cefTRIAXone 1 GM Vial IVPUSH ONE (05:31)
[2017-07-29 06:04] VITALS: BP 123/71
--- NOTE | 2017-08-01 10:41 | EKG ---
07/29/2017 - SANDRINE KEN I reviewed the EKG and agree with the machine's reading. [facility] /[id number]
== END 2017-07-29 06:36 ==
LOC: DL.ED 04:25
DX: J90 Pleural effusion, not elsewhere classified (principal); D72.829 Elevated white blood cell count, unspecified; R18.0 Malignant ascites; I10 Essential (primary) hypertension; Z79.82 Long term (current) use of aspirin; Z79.899 Other long term (current) drug therapy; Z87.891 Personal history of nicotine dependence
CPT/HCPCS: 36415; 71010; 80053; 83605; 83880; 84484; 85025; 87040; 93005; 93010; 96374; 96375; 99285; J0696; J1940